=== PATIENT | female | born 1995 | race Caucasian/White ===

== ENCOUNTER 2019-03-12 12:19 | Emergency (ER) | payer OTHER ==
[2019-03-12] MEDS ORDERED: predniSONE 20 MG TABLET PO STA (12:59)
[2019-03-12] MEDS ORDERED: ALBUTEROL NEB 2.5 MG/3 ML INH STA (12:59)
--- NOTE | 2019-03-12 13:10 | ED Physician Documentation ---
History of Present Illness - Stated complaint Stated Complaint: COUGHING, WEEZING - Chief complaint Chief Complaint: Resp - History obtained from History obtained from: Patient - History of Present Illness Timing: How many days ago (A few days) Pain level max: 0 Pain level now: 0 - Additonal information Additional information: Patient moved here from [place], having increased wheezing and difficulty breathing. Rescue inhaler not helping. She is out of her inhaled steroid. No fevers. Mild cough. She is not . Negative test yesterday. Worse with exertion, better with rest Review of Systems Ten Systems: 10 systems reviewed and negative Constitutional: denies: Fever, Chills Nose: denies: Rhinorrhea / runny nose Throat: denies: Sore throat Skin: denies: Rash Musculoskeletal: denies: Neck pain, Back pain Neurologic: denies: Headache PD PAST MEDICAL HISTORY - Past Medical History Past Medical History: Yes Cardiovascular: None Respiratory: Asthma Neuro: None Endocrine/Autoimmune: None GI: None AIR DEFENSE ARTILLERY OFFICER: None : None, Chronic bladder infection HEENT: None Psych: Anxiety Musculoskeletal: None Derm: None - Past Surgical History Past Surgical History: Yes General: Cholecystectomy - Present Medications Home Medications: Ambulatory Orders Medication Instructions Recorded Confirmed Albuterol Sulf [Ventolin Hfa 1 - 2 puffs INH Q4HR PRN #1 inhaler 03/12/19 Inhaler] Albuterol Sulfate [Albuterol 1 - 2 puffs INH Q4HR PRN 03/12/19 03/12/19 Sulfate Hfa] Escitalopram [Lexapro] 10 mg ORAL DAILY 03/12/19 03/12/19 Fluticasone Propionate [Flovent 2 puffs INH DAILY 03/12/19 03/12/19 Hfa] Fluticasone Propionate [Flovent 2 puffs INH DAILY #1 aer.w.adap 03/12/19 Hfa] Loratadine [Claritin] 1 tab ORAL DAILY 03/12/19 03/12/19 predniSONE [Deltasone] 10 mg PO [id number] #42 tab 03/12/19 - Allergies Allergies/Adverse Reactions: Allergies Allergy/AdvReac Type Severity Reaction Status Date / Time No Known Drug Allergies Allergy Verified 03/12/19 12:31 - Social History Does the pt smoke?: No Smoking Status: Never smoker Does the pt drink ETOH?: Yes Does the pt have substance abuse?: Yes Substance Use and Type: Marijuana - Immunizations Immunizations are current?: Yes - POLST Patient has POLST: No PD ED PE NORMAL - Vitals Vital signs reviewed: Yes - General General: Alert and oriented X 3, No acute distress - HEENT HEENT: Moist mucous membranes - Neck Neck: Supple, no meningeal sign - Cardiac Cardiac: RRR - Respiratory Respiratory: No respiratory distress, Other (Diffuse wheezing bilaterally) - Abdomen Abdomen: Soft, Non tender, Non distended - Derm Derm: Warm and dry - Neuro Neuro: Alert and oriented X 3 Results - Vitals Vitals: Vital Signs - 24 hr 03/12/19 03/12/19 12:27 13:07 Temperature 37.4 C Heart Rate 100 100 Respiratory 16 16 Rate Blood Pressure 123/75 O2 Saturation 97 Oxygen O2 Source Room air PD MEDICAL DECISION MAKING - ED course Complexity details: reviewed results, re-evaluated patient, considered differential, d/w patient ED course: 23-year-old female presents to the emergency department with an asthma exacerbation. Given albuterol nebulizer and steroids. Will place on steroids for home. She is well-appearing, nontoxic. Afebrile. Improved after breathing treatment. Patient counseled regarding signs and symptoms for which I believe and urgent re-evaluation would be necessary. Patient with good understanding of and agreement to plan and is comfortable going home at this time This document was made in part using voice recognition software. While efforts are made to proofread this document, sound alike and grammatical errors may occur. Departure - Departure Disposition: 01 Home, Self Care Clinical Impression: Asthma exacerbation Qualifiers: Asthma severity: unspecified severity Asthma persistence: unspecified Qualified Code(s): J45.901 - Unspecified asthma with (acute) exacerbation Condition: Good Instructions: ED Reactive Airway Disease Follow-Up: your,doctor in 1 week [Other] Prescriptions: Albuterol Sulf [Ventolin Hfa Inhaler] 1 - 2 puffs INH Q4HR PRN #1 inhaler PRN Reason: Shortness Of Air/Wheezing Fluticasone Propionate [Flovent Hfa] 2 puffs INH DAILY #1 aer.w.adap predniSONE [Deltasone] 10 mg PO [id number] #42 tab Comments: Use the medications as prescribed. Return if you worsen. Follow-up with your doctor for further care.
[2019-03-12 13:42] VITALS: BP 129/76
== END 2019-03-12 13:42 | disposition home or self-care (01) ==
LOC: ED 12:19
DX: J45.901 Unspecified asthma with (acute) exacerbation (principal)
CPT/HCPCS: 94640; 99283; 99284; J7512

== ENCOUNTER 2019-09-28 21:59 | Emergency (ER) | payer OTHER, MEDICAID ==
[2019-09-28 22:07] VITALS: BP 115/65
[2019-09-28] MEDS ORDERED: predniSONE 20 MG TABLET PO STA (22:51)
[2019-09-28] MEDS ORDERED: FLUCONAZOLE 100 MG TABLET PO STA (22:52)
--- NOTE | 2019-09-28 22:58 | ED Physician Documentation ---
PD HPI SKIN - Stated complaint Stated Complaint: BODY RASH/28WK PREG - Chief complaint Chief Complaint: Wound - History obtained from History obtained from: Patient (G2, P1 at 28 weeks presents with a very itchy rash been going on for 3 weeks. She does have a history of eczema, did not have trouble like this in her first . It is on the arms, abdominal wall, under the breasts.) Review of Systems Constitutional: denies: Fever, Chills Respiratory: denies: Dyspnea, Cough GI: denies: Abdominal Pain, Nausea, Vomiting PD PAST MEDICAL HISTORY - Past Medical History Past Medical History: Yes Cardiovascular: High cholesterol Respiratory: Asthma Neuro: None Endocrine/Autoimmune: None GI: None BOOKIE: None : None HEENT: None Psych: Depression, Anxiety Musculoskeletal: None Derm: Eczema - Past Surgical History Past Surgical History: Yes General: Cholecystectomy - Present Medications Home Medications: Ambulatory Orders Medication Instructions Recorded Confirmed Albuterol Sulf [Ventolin Hfa 1 - 2 puffs INH Q4HR PRN #1 inhaler 03/12/19 Inhaler] Albuterol Sulfate [Albuterol 1 - 2 puffs INH Q4HR PRN 03/12/19 03/12/19 Sulfate Hfa] Escitalopram [Lexapro] 10 mg ORAL DAILY 03/12/19 03/12/19 Fluticasone Propionate [Flovent 2 puffs INH DAILY 03/12/19 03/12/19 Hfa] Fluticasone Propionate [Flovent 2 puffs INH DAILY #1 aer.w.adap 03/12/19 Hfa] Loratadine [Claritin] 1 tab ORAL DAILY 03/12/19 03/12/19 predniSONE [Deltasone] 10 mg PO [id number] #42 tab 03/12/19 Clobetasol 0.05% Oint [Temovate 1 applic TOP BID #3 tube 09/28/19 0.05% Oint] predniSONE [Deltasone] 20 mg PO [id number] #21 tab 09/28/19 - Allergies Allergies/Adverse Reactions: Allergies Allergy/AdvReac Type Severity Reaction Status Date / Time No Known Drug Allergies Allergy Verified 03/12/19 12:31 - Social History Does the pt smoke?: No Smoking Status: Never smoker Does the pt drink ETOH?: Yes Does the pt have substance abuse?: Yes - Immunizations Immunizations are current?: Yes - POLST Patient has POLST: No PD ED PE NORMAL - Vitals Vital signs reviewed: Yes - General General: Alert and oriented X 3, No acute distress - Derm Derm: Other (She is a body wide rash consistent with basically a combination of polymorphic eruption of as well as atopic eruption of . She clearly has some atypia on the flexural surfaces of the arms and legs, and the street on the abdominal wall are involved as well. Under the breast, note this part of the exam was done with Mary Carmen ORTEGA, there is a superinfection with Mis.) - Psych Psych: Normal mood, Normal affect Results - Vitals Vitals: Vital Signs - 24 hr 09/28/19 22:04 Temperature 36.8 C Heart Rate 58 L Respiratory 18 Rate Blood Pressure 115/65 O2 Saturation 100 Oxygen O2 Source Room air PD MEDICAL DECISION MAKING - ED course ED course: This is a 23-year-old G2, P1 who presents with a severe rash consistent with sort of a combination of atopic eruption of and polymorphic eruption of which is treated with oral and topical steroids and oral Diflucan here. Departure - Departure Disposition: 01 Home, Self Care Clinical Impression: Polymorphic eruption of Condition: Good Record reviewed to determine appropriate education?: Yes Instructions: ED Dermatitis Atopic Eczema Prescriptions: Clobetasol 0.05% Oint [Temovate 0.05% Oint] 1 applic TOP BID #3 tube predniSONE [Deltasone] 20 mg PO [id number] #21 tab Comments: Follow-up with your new OB on Saturday as scheduled. Return for new or worsening symptoms. As discussed, your rash is consistent with a combination of POLYMORPHIC eruption of And atopic eruption of .
[2019-09-28] MEDS ORDERED: diphenhydrAMINE 25 MG CAPSULE PO STA (23:01)
== END 2019-09-28 23:03 | disposition home or self-care (01) ==
LOC: ED 21:59
DX: O99.713 Diseases of the skin and subcutaneous tissue complicating pregnancy, third trimester (principal); R21 Rash and other nonspecific skin eruption; O98.813 Other maternal infectious and parasitic diseases complicating pregnancy, third trimester; B37.2 Candidiasis of skin and nail; Z3A.28 28 weeks gestation of pregnancy
CPT/HCPCS: 99282; 99283; A9270; J7512

== ENCOUNTER 2019-10-16 10:50 | Outpatient (CLI) | payer OTHER, MEDICAID ==
[2019-10-16 11:20] LABS: ALBUMIN 3.1 g/dL (3.2-5.5); ALBUMIN/GLOBULIN RATIO 0.9 (1.0-2.2); BILIRUBIN,TOTAL 0.3 mg/dL (0.2-1.0); CALCIUM 8.2 mg/dL (8.5-10.3); CREATININE 0.4 mg/dL (0.4-1.0); TOTAL PROTEIN 6.7 g/dL (6.7-8.2)
[2019-10-19 15:55] LABS: CHENODEOXYCHOLIC ACID 2.6 umol/L (< OR = 3.1); CHOLIC ACID 2.1 umol/L (< OR = 1.8); DEOXYCHOLIC ACID 0.6 umol/L (< OR = 2.4)
== END 2019-10-16 10:51 | disposition home or self-care (01) ==
LOC: LAB 10:50
PROVIDERS: ATTEND Obstetrics & Gynecology
DX: Z34.80 Encounter for supervision of other normal pregnancy, unspecified trimester (principal); Z87.59 Personal history of other complications of pregnancy, childbirth and the puerperium
CPT/HCPCS: 36415; 80053; 82542

== ENCOUNTER 2019-11-23 07:00 | Outpatient (CLI) | payer OTHER, MEDICAID ==
[2019-11-23 21:34] LABS: TRICHOMONAS VAGINALIS DNA NEGATIVE (NEGATIVE)
== END 2019-11-23 23:59 | disposition home or self-care (01) ==
LOC: LAB.R 07:00
PROVIDERS: ATTEND Obstetrics & Gynecology
DX: Z36.85 Encounter for antenatal screening for Streptococcus B (principal)
CPT/HCPCS: 87491; 87591; 87661; 87797

== ENCOUNTER 2019-11-23 12:06 | Emergency (ER) | payer OTHER, MEDICAID ==
--- NOTE | 2019-11-23 13:24 | ED Physician Documentation ---
History of Present Illness - Stated complaint Stated Complaint: SOA - Chief complaint Chief Complaint: Resp - History obtained from History obtained from: Patient - History of Present Illness Timing: How many weeks ago Pain level max: 0 Pain level now: 0 - Additonal information Additional information: 24-year-old female presents to the emergency department with dyspnea for the past several weeks. She is 36 weeks . Saw her OB today who sent her here. She states that she has a harder time breathing when she lies flat. She uses her albuterol 1-2 times per week. She uses her Flovent a few times a week as well. No fevers. No coughing. No chills. No abdominal pain. No vomiting. No chest pain. Review of Systems Ten Systems: 10 systems reviewed and negative Constitutional: denies: Fever, Chills Cardiac: denies: Chest pain / pressure Respiratory: reports: Dyspnea, Wheezing GI: denies: Vomiting Skin: denies: Rash Neurologic: denies: Headache PD PAST MEDICAL HISTORY - Past Medical History Cardiovascular: High cholesterol Respiratory: Asthma Neuro: None Endocrine/Autoimmune: None GI: None APPRAISAL MANAGER: None : None HEENT: None Psych: Depression, Anxiety Musculoskeletal: None Derm: Eczema - Past Surgical History Past Surgical History: Yes General: Cholecystectomy - Present Medications Home Medications: Ambulatory Orders Medication Instructions Recorded Confirmed Albuterol Sulf [Ventolin Hfa 1 - 2 puffs INH Q4HR PRN #1 inhaler 03/12/19 Inhaler] Albuterol Sulfate [Albuterol 1 - 2 puffs INH Q4HR PRN 03/12/19 03/12/19 Sulfate Hfa] Escitalopram [Lexapro] 10 mg ORAL DAILY 03/12/19 03/12/19 Fluticasone Propionate [Flovent 2 puffs INH DAILY 03/12/19 03/12/19 Hfa] Fluticasone Propionate [Flovent 2 puffs INH DAILY #1 aer.w.adap 03/12/19 Hfa] Loratadine [Claritin] 1 tab ORAL DAILY 03/12/19 03/12/19 predniSONE [Deltasone] 10 mg PO [id number] #42 tab 03/12/19 Clobetasol 0.05% Oint [Temovate 1 applic TOP BID #3 tube 09/28/19 0.05% Oint] predniSONE [Deltasone] 20 mg PO [id number] #21 tab 09/28/19 - Allergies Allergies/Adverse Reactions: Allergies Allergy/AdvReac Type Severity Reaction Status Date / Time No Known Drug Allergies Allergy Verified 11/23/19 12:20 - Social History Does the pt smoke?: No Smoking Status: Never smoker Does the pt drink ETOH?: Yes Does the pt have substance abuse?: Yes - Immunizations Immunizations are current?: Yes - POLST Patient has POLST: No PD ED PE NORMAL - Vitals Vital signs reviewed: Yes - General General: Alert and oriented X 3, No acute distress - HEENT HEENT: Moist mucous membranes - Neck Neck: Supple, no meningeal sign - Cardiac Cardiac: RRR - Respiratory Respiratory: No respiratory distress, Clear bilaterally - Abdomen Abdomen: Soft, Non tender, Non distended - Derm Derm: Warm and dry, No rash - Extremities Extremities: No edema, No calf tenderness / cord - Neuro Neuro: Alert and oriented X 3 Results - Vitals Vitals: Vital Signs - 24 hr 11/23/19 11/23/19 11/23/19 12:20 13:41 14:27 Temperature 36.5 C 36.4 C L Heart Rate 114 H 114 H 108 H Respiratory 22 20 20 Rate Blood Pressure 126/81 H 122/79 O2 Saturation 97 98 Oxygen O2 Source Room air - EKG (time done) 1221 Rate: Rate (enter#) (107) Rhythm: Sinus tachycardia [place]: Normal Intervals: Normal [place] QRS: Normal Ischemia: Normal ST segments - Labs Labs: Laboratory Tests 11/23/19 11/23/19 11/23/19 14:20 14:20 14:20 WBC 11.1 H RBC 4.18 L Hgb 12.3 Hct 37.7 MCV 90.2 MCH 29.4 MCHC 32.6 RDW 14.9 Plt Count 223 MPV 10.6 Neut # (Auto) 8.1 H Lymph # (Auto) 2.1 [place] # (Auto) 0.5 Eos # (Auto) 0.2 Baso # (Auto) 0.0 Absolute Nucleated RBC 0.00 Nucleated RBC % 0.0 Sodium 138 Potassium 3.5 Chloride 104 Carbon Dioxide 21 Anion Gap 13.0 BUN 8 Creatinine 0.5 Estimated GFR (MDRD) 152 Glucose 110 H Calcium 8.8 Total Bilirubin 0.7 AST 22 ALT 16 Alkaline Phosphatase 100 Troponin I High Sens < 2.3 L Total Protein 6.7 Albumin 3.1 L Globulin 3.6 Albumin/Globulin Ratio 0.9 L Lipase 19 L PD MEDICAL DECISION MAKING - ED course Complexity details: reviewed results, re-evaluated patient, considered differential, d/w patient ED course: No evidence of pulmonary embolus. No evidence of pneumonia. Patient is well- appearing, nontoxic. No acute lab abnormalities. No evidence of acute coronary syndrome. We will continue her respiratory medications at home and have her follow-up with her doctor for further care. She is ambulating throughout the emergency department with no shortness of breath. She is also lying in the emergency department bed without any difficulty. Patient counseled regarding signs and symptoms for which I believe and urgent re-evaluation would be necessary. Patient with good understanding of and agreement to plan and is comfortable going home at this time This document was made in part using voice recognition software. While efforts are made to proofread this document, sound alike and grammatical errors may occur. Departure - Departure Disposition: 01 Home, Self Care Clinical Impression: Dyspnea Qualifiers: Dyspnea type: unspecified Qualified Code(s): R06.00 - Dyspnea, unspecified Condition: Good Instructions: ED Dyspnea Shortness of Breath Follow-Up: Heaven Sharma, MARRIAGE COUNSELOR [Primary Care Provider] - Within 1 week Comments: Make sure that you are taking your inhalers as prescribed at home. You can use your albuterol if you are feeling short of breath as well. Return if you worsen. Your testing does not show any acute abnormalities today. Discharge Date/Time: 11/23/19 15:08
[2019-11-23] MEDS ORDERED: ALBUTEROL NEB 2.5 MG/3 ML INH STA (13:31)
[2019-11-23 14:26] LABS: BASOPHILS % (AUTO) 0.3 %; EOSINOPHILS # (AUTO) 0.2 10^3/uL (0.0-0.7); EOSINOPHILS % (AUTO) 1.8 %; HGB - HEMOGLOBIN 12.3 g/dL (12.0-16.0); LYMPHOCYTES # (AUTO) 2.1 10^3/uL (1.5-3.5); LYMPHOCYTES % (AUTO) 19.2 %; MEAN CORPUSCULAR HEMOGLOBIN 29.4 pg (27.0-31.0); MEAN CORPUSCULAR HGB CONC 32.6 g/dL (32.0-36.0); MEAN CORPUSCULAR VOLUME 90.2 fL (81.0-99.0); MEAN PLATELET VOLUME 10.6 fL (7.9-10.8); MONOCYTES # (AUTO) 0.5 10^3/uL (0.0-1.0); MONOCYTES % (AUTO) 4.4 %; NEUTROPHILS # (AUTO) 8.1 10^3/uL (1.5-6.6); NEUTROPHILS % (AUTO) 73.6 %; PLT - PLATELET COUNT 223 10^3/uL (130-450); RED BLOOD COUNT 4.18 10^6/uL (4.20-5.40); RED CELL DISTRIBUTION WIDTH 14.9 % (12.0-15.0); WHITE BLOOD COUNT 11.1 x10^3/uL (4.8-10.8)
[2019-11-23 14:40] LABS: ALBUMIN 3.1 g/dL (3.2-5.5); ALBUMIN/GLOBULIN RATIO 0.9 (1.0-2.2); BILIRUBIN,TOTAL 0.7 mg/dL (0.2-1.0); CALCIUM 8.8 mg/dL (8.5-10.3); CREATININE 0.5 mg/dL (0.4-1.0); TOTAL PROTEIN 6.7 g/dL (6.7-8.2)
[2019-11-23 14:48] VITALS: BP 122/79
== END 2019-11-23 15:08 | disposition home or self-care (01) ==
LOC: ED 12:06
DX: O99.89 Other specified diseases and conditions complicating pregnancy, childbirth and the puerperium (principal); R06.00 Dyspnea, unspecified; Z3A.36 36 weeks gestation of pregnancy; Z36.85 Encounter for antenatal screening for Streptococcus B
CPT/HCPCS: 36415; 80053; 83690; 84484; 85025; 87491; 87591; 87661; 87797; 93005; 94640; 99284

== ENCOUNTER 2019-12-12 18:12 | Outpatient (CLI) | payer OTHER, MEDICAID ==
[2019-12-12 18:37] VITALS: BP 115/72
--- NOTE | 2019-12-12 21:06 | PROVIDER PROGRESS NOTE ---
- HPI Chief Complaint: Other Current : Vital Signs Temperature 99.0 F 12/12/19 18:35 Heart Rate 115 H 12/12/19 18:35 Respiratory Rate 20 12/12/19 18:35 Blood Pressure 115/72 12/12/19 18:35 O2 Saturation 100 12/12/19 18:35 Temperature 99.0 F 12/12/19 18:35 Heart Rate 115 H 12/12/19 18:35 Respiratory Rate 20 12/12/19 18:35 Blood Pressure 115/72 12/12/19 18:35 O2 Saturation 100 12/12/19 18:35 - Exam 24yo at 37 6/7 weeks by first trimester US not consistent with LMP. Pt was scheduled for elective IOL based erroneously on LMP. Pt has no complaints, reports irregular mild contractions, no bleeding or fluid leak. No n/v/f/c or dysuria. complicated by maternal obesity, asthma, depression, h/o mild preeclampsia and anemia. LABS: A+ GBS+ Hep B/RPR/HIV neg GC/chlam neg Abn glucola; normal 3h GTT Rubella immune Flu and Tdap given 09/18/2019 PHistory/ PUPPS, preeclampsia, cholecystectomy after first , GERD, depression, asthma, obesity, anemia OB 2017 40 weeks; 8#1oz male. Mild preeclampsia, cholelithiasis Exam/ 115/72, 105, 18 100% sat RA 37.2 No distress Abd soft, gravid VE deferred Category 1 tracing Rare mild contraction BPP as noted - Procedures OB Procedure Performed: Other (BPP: 6/8, -2 for breathing. ALFONSO 15.2, Largest vertical pocket 4.92cm) - Plan Plan: Discussed error of calculation of JHONNY as 9 week scan not c/w LMP. Pt understands. Return 2/3 for NST, BPP Rescheduled for 2/8 PM (38 6/7) to start cervical ripening as indicated. Precautions discussed
== END 2019-12-12 21:15 | disposition home or self-care (01) ==
LOC: WFO 18:12 → FBP 18:15 → WFO 21:15
PROVIDERS: ATTEND Obstetrics & Gynecology
DX: O99.213 Obesity complicating pregnancy, third trimester (principal); O99.513 Diseases of the respiratory system complicating pregnancy, third trimester; J45.909 Unspecified asthma, uncomplicated; O99.013 Anemia complicating pregnancy, third trimester; O99.343 Other mental disorders complicating pregnancy, third trimester; F32.9 Major depressive disorder, single episode, unspecified; Z3A.37 37 weeks gestation of pregnancy
CPT/HCPCS: 99213; 99214